=== PATIENT | female | born 1990 | race Caucasian/White ===

== ENCOUNTER 2021-03-13 16:59 | Outpatient (CLI) | payer BC ==
[~2021-03-13] VITALS: Ht 175.3 cm; Wt 107.7 kg
[~2021-03-13 16:59] MED LIST: IBU600 MG PO; PERCOCET 325 MG1 TA2 PO
[2021-03-13] MEDS ORDERED: PRENATAL MULTIV1 KIT PO (17:27)
[2021-03-13 17:41] VITALS: BP 126/80; PULSE 85; TEMP 97.9
--- NOTE | 2021-03-13 17:50 | NUR ---
Discharged to home after reactive strip noted. Instructed to return if ever suspects fetus is not moving a normal amount, with any leaking of fluid, vaginal bleeding, or regular contractions. Instructed to keep next scheduled OBGYN visit. Verbalizes understanding. Denies any questions or concerns.
== END 2021-03-13 17:50 | disposition home or self-care (01) ==
LOC: LDRO 16:59
DX: O36.8130 Decreased fetal movements, third trimester, not applicable or unspecified (principal); Z3A.36 36 weeks gestation of pregnancy

== ENCOUNTER → 2021-03-27 | Outpatient (CLI) | payer BC ==
[~2021-03-27] MED LIST changes: +CYTOTEC200 MCG PO; +PRENATAL MULTIV1 KIT PO
== END ==
LOC: ZCOL.LAB 09:36
DX: Z20.822 Contact with and (suspected) exposure to COVID-19 (principal)

== ENCOUNTER 2021-04-01 06:23 | Inpatient (IN) | payer BC ==
[2021-04-01] VITALS (41 sets, daily range): BP systolic 104–168; BP diastolic 55–86; PULSE 40–117; TEMP 98.1–98.7
[~2021-04-01] VITALS: Ht 175.3 cm; Wt 110.5 kg
[~2021-04-01 06:23] MED LIST changes: -CYTOTEC200 MCG PO
--- NOTE | 2021-04-01 06:30 | NUR ---
Pt arrived on unit ambulatory for scheduled induction of labor. Pt reports occasional contractions, denies any leaking of fluid or vaginal bleeding and reports normal movement. EFM and toco monitors started. Vital signs WNL. Plan of care for induction reviewed.
[2021-04-01 07:28] LABS: BASO % 0.2 % (0.0-2.0); EOS % 0.4 % (0-4.0); GRAN # 5.2 (1.4-6.5); GRAN % 64.9 % (42.2-75.2); LYMPH # 2.2 (1.2-3.4); LYMPH % 27.8 % (20.0-51.0); MEAN CELL VOLUME 94 fl (80.0-100.0); MEAN CORPUSCULAR HEMOGLOBIN 31 pg (27.0-31.0); MEAN CORPUSCULAR HGB CONC 33 g/dl (33.0-37.0); MEAN PLATELET VOLUME 12.1 fl (7.4-10.4); MONO # 0.5 (0.1-0.6); MONO % 6.2 % (1.7-9.3); PLATELET COUNT 228 K/mm3 (130-400); RED BLOOD COUNT 3.85 M/mm3 (4.10-5.30); REDCELL DISTRIBUTION WIDTH-CV 13.2 % (11.5-14.5)
[2021-04-01 07:31] LABS: HEMATOCRIT 36.1 % (37.0-47.0)
--- NOTE | 2021-04-01 09:00 | NUR ---
Roles on the unit. FHR tracing reviewed. Plan of care reviewed with pt and at the bedside.
--- NOTE | 2021-04-01 12:15 | NUR ---
Roles at the bedside. SVE and AROM done with clear fluid /.
--- NOTE | 2021-04-01 13:40 | NUR ---
Difficult tracing ctx. Multiple attempts to adjust toco monitor.
--- NOTE | 2021-04-01 14:29 | NUR ---
1429- ROVERTO Bhagat at the bedside for epidural placement. Pt sitting on the edge of the bed. SPO2 monitor started. 1435- Single shot done per ROVERTO Bhagat. See anesthesia records for details. 1441- Assisted pt back to supine position with left wedge. EFM and toco monitor adjusted.
--- NOTE | 2021-04-01 15:49 | NUR ---
1549- Pt reports feeling a lot of pressure. SVE done by this RN /+1. 1550- Roles notified and enroute to hospital for pending delivery. 1603- Roles at the bedside. Pt set up for delivery. 1606- of viable male . placed on mom's abdomen. Cords clamped and cut. Care of the given to nursery RN at the bedside. 1635- Delivery of placenta with bango assistance. Fundus firm and lochia WNL. Pitocin started at 333ml/hr per order and protocol.
--- NOTE | 2021-04-01 16:45 | NUR ---
Straight cath done following delivery per Dr. Chong
--- NOTE | 2021-04-01 19:45 | NUR ---
1945 EPID DC'D. UP TO BR WITH ASSIST AND VOIDED 100CC. PERICARE DONE AND AMB TO ROOM 215 AND SHAW WELL.
[2021-04-02] VITALS: BP 117/78; PULSE 69; TEMP 98.7
[2021-04-02] MEDS ORDERED: IBU600 MG PO (08:53)
[2021-04-02 09:30] VITALS: BP 120/76; PULSE 92; TEMP 98
--- NOTE | 2021-04-02 10:02 | NUR ---
Initial visit; Patient thanked Process Line Operator for offering congratulations and God's blessings for the of her son. Process Line Operator thanked mom for choosing [facility].
[2021-04-02 12:30] VITALS: BP 119/81; PULSE 81; TEMP 98
[2021-04-02 17:00] VITALS: BP 120/78; PULSE 86; TEMP 98
[2021-04-02 20:02] VITALS: BP 114/83; PULSE 85; TEMP 98.5
[2021-04-03 07:40] VITALS: BP 122/79; PULSE 75; TEMP 97.9
== END 2021-04-03 11:20 | disposition home or self-care (01) | DRG 807 ==
LOC: LDR 06:23 → OB 13:06
PROVIDERS: ADMIT Obstetrics & Gynecology
PROC: 10E0XZZ Delivery of Products of Conception, External Approach (ICD-10-PCS; principal; 2021-04-01)
PROC: 0KQM0ZZ Repair Perineum Muscle, Open Approach (ICD-10-PCS; 2021-04-01)
PROC: 10D17Z9 Manual Extraction of Products of Conception, Retained, Via Natural or Artificial Opening (ICD-10-PCS; 2021-04-01)
DX: O70.1 Second degree perineal laceration during delivery (principal); Z37.0 Single live birth; Z3A.39 39 weeks gestation of pregnancy
CPT/HCPCS: J0690; J2590; J7120

== ENCOUNTER 2021-04-09 01:55 | Inpatient (IN) | payer BC ==
[2021-04-09] VITALS (15 sets, daily range): BP systolic 96–124; BP diastolic 54–81; PULSE 78–105; TEMP 97.6–99.1
[~2021-04-09] VITALS: Ht 175.3 cm; Wt 101.8 kg
[2021-04-09 02:10] LABS: BASO % 0.2 % (0.0-2.0); EOS % 0.2 % (0-4.0); GRAN # 7.1 (1.4-6.5); GRAN % 76.5 % (42.2-75.2); HEMOGLOBIN 10.2 g/dl (12.5-16.0); LYMPH # 1.8 (1.2-3.4); LYMPH % 19.9 % (20.0-51.0); MEAN CELL VOLUME 98 fl (80.0-100.0); MEAN CORPUSCULAR HEMOGLOBIN 31 pg (27.0-31.0); MEAN CORPUSCULAR HGB CONC 32 g/dl (33.0-37.0); MEAN PLATELET VOLUME 10.3 fl (7.4-10.4); MONO # 0.3 (0.1-0.6); PLATELET COUNT 393 K/mm3 (130-400); RED BLOOD COUNT 3.27 M/mm3 (4.10-5.30); REDCELL DISTRIBUTION WIDTH-CV 13.3 % (11.5-14.5)
[2021-04-09 02:14] LABS: HEMATOCRIT 31.9 % (37.0-47.0)
[2021-04-09 02:18] LABS: INR 1.1 (0.8-3.0); PROTHROMBIN TIME 11.7 SECONDS (9.7-12.8)
[2021-04-09 02:20] LABS: PARTIAL THROMBOPLASTIN TIME 26.5 SECONDS (26.0-37.0)
[2021-04-09 02:31] LABS: ALANINE AMINOTRANSFERASE 22 U/L (4-34); ALBUMIN 3.6 gm/dL (3.5-5.0); ALKALINE PHOSPHATASE 137 U/L (50-136); ANION GAP 5 mmol/L (7-16); AST,SGOT 35 U/L (15-37); BILIRUBIN,TOTAL 0.3 mg/dL (0.0-1.0); BLOOD UREA NITROGEN 18 mg/dL (7-17); CALCIUM 8.6 mg/dL (8.4-10.2); CARBON DIOXIDE 23 mmol/L (22-30); CHLORIDE 110 mmol/L (98-107); CREATININE, serum 0.69 (0.52-1.25); GLUCOSE 168 mg/dL (74-106); LIPASE 50 U/L (23-300); POTASSIUM 3.8 mmol/L (3.4-5.0); SODIUM 138 mmol/L (137-145); TOTAL PROTEIN 6.5 gm/dL (6.4-8.2)
[2021-04-09 02:54] LABS: TROPONIN-I < 0.012 ng/mL (0.000-0.035)
[2021-04-09 03:06] LABS: COLLECTION METHOD CATHETER
[2021-04-09 03:15] LABS: MUCOUS Present /lpf; PH 5 (5-8); SQUAMOUS EPITHELIAL 0-2 /hpf; URINE APPEARANCE Hazy; URINE BACTERIA None Seen /hpf; URINE BILIRUBIN Negative (NEGATIVE); URINE BLOOD Negative (NEGATIVE); URINE COLOR Yellow; URINE GLUCOSE Negative (NEGATIVE); URINE KETONE Negative (NEGATIVE); URINE LEUKOCYTE ESTERASE Negative (NEGATIVE); URINE NITRATE Negative (NEGATIVE); URINE PROTEIN(semi-quant) 2+ (NEGATIVE); URINE RBC 0-2 /hpf; URINE UROBILINOGEN Negative (NEGATIVE)
[2021-04-09] MEDS ORDERED: CYTOTEC200 MCG PO ×2 (05:53→05:54)
[2021-04-09 07:24] LABS: BASO % 0.2 % (0.0-2.0); EOS % 0.1 % (0-4.0); GRAN # 9.2 (1.4-6.5); LYMPH # 1.8 (1.2-3.4); LYMPH % 15.8 % (20.0-51.0); MEAN CELL VOLUME 98 fl (80.0-100.0); MEAN CORPUSCULAR HGB CONC 32 g/dl (33.0-37.0); MEAN PLATELET VOLUME 10.5 fl (7.4-10.4); MONO # 0.4 (0.1-0.6); MONO % 3.5 % (1.7-9.3); PLATELET COUNT 352 K/mm3 (130-400); RED BLOOD COUNT 2.66 M/mm3 (4.10-5.30); REDCELL DISTRIBUTION WIDTH-CV 13.5 % (11.5-14.5)
[2021-04-09 07:31] LABS: HEMOGLOBIN 8.3 g/dl (12.5-16.0); MEAN CORPUSCULAR HEMOGLOBIN 31 pg (27.0-31.0)
--- NOTE | 2021-04-09 11:14 | NUR ---
1020 PATIENT HERE FROM ER FOR HEAVY BLEEDING AND NEEDED BLOOD. ASSESSMENT COMPLETED AND IVF STARTED IN LEFT AC. PRBC STARTED BY THIS NURSE. VIOLET MCKEON RN AND RAE DANIELS RN. BP 105/60 P78 T 98.6. BLOOD STARTED AT 60 CC/HR. 1025 PATIET SITTING UP IN BED PUMPING AT THIS TIME. PATIENT STATES IS LIGHTHEADED, SWEATY,AND FEELS BAD. PATIENT PALE, BLOOD PLACED ON HOLD, PUMPING STOPPED AND HEAD OF BED. BP 70/40. COOL WASHRAG TO FOREHEAD. BABY AND AT BEDSIDE. 1035 96/65 PATIENT FEELING BETTER AT THIS TIME. FUNUD FIRM AND NO CLOTS NOTED AT THIS TIME. 1045 BP 111/54 P 90 BLOOD RESTARTED AT 60CC/HR BY THIS NURSE. THIS NURSE REMAINS AT BEDSIDE. BLEEDING REMAINS WNL. 1100 BP 118/62 P92 BLLOD RATE INCREASED TO 300CC/HR. NO SIGNS OR SYMPTOMS OF REACTION AT THIS TIME. PERICARE DONE AT THIS TIME WITH CHUX CHANGED. PATIENT SITS ON BEDPAN FOR 800 CC. PATIENT FEELING MUCH BETTER. 1130 PATIENT REMAINS RESTING AT THIS TIME. DENIES NEEDS AND STATES HAS NOT FELT ACTIVE BLEEDING. DR KELLOGG CALLED AND UPDATED ON ALL ABOVE INFORMATION, NO NEW ORDERS GIVEN.
[2021-04-09 15:05] LABS: HEMATOCRIT 28.5 % (37.0-47.0); HEMOGLOBIN 9.6 g/dl (12.5-16.0)
--- NOTE | 2021-04-09 15:43 | NUR ---
1530 PATIENT DANGLES ON EDGE OF BED WITH ASSIST OF 2. TOLERATES WELL. AMBULATE TO BATHROOM. PERICARE DONE AND VOIDS WITHOUT DIFFICULTY. PLUM SIZE CLOT WITH URINATION. RESTING IN BED NOW. DR KELLOGG CALLED AND UPDATED. NO NEW ORDERS AT THIS TIME
--- NOTE | 2021-04-09 17:36 | NUR ---
1730 SLEPT WELL. SITS UP IN BED TO PUMP AT THIS TIME
[2021-04-10 04:40] VITALS: BP 117/66; PULSE 81; TEMP 98.3
[2021-04-10 07:09] LABS: BASO % 0.1 % (0.0-2.0); EOS # 0.1 (0.0-0.7); EOS % 0.9 % (0-4.0); GRAN % 67.2 % (42.2-75.2); LYMPH # 2.3 (1.2-3.4); LYMPH % 26.3 % (20.0-51.0); MEAN CELL VOLUME 94 fl (80.0-100.0); MEAN CORPUSCULAR HGB CONC 33 g/dl (33.0-37.0); MEAN PLATELET VOLUME 10.3 fl (7.4-10.4); MONO # 0.5 (0.1-0.6); MONO % 5.3 % (1.7-9.3); PLATELET COUNT 269 K/mm3 (130-400); RED BLOOD COUNT 2.79 M/mm3 (4.10-5.30); REDCELL DISTRIBUTION WIDTH-CV 14.3 % (11.5-14.5)
[2021-04-10 07:13] LABS: HEMATOCRIT 26.2 % (37.0-47.0); HEMOGLOBIN 8.6 g/dl (12.5-16.0); MEAN CORPUSCULAR HEMOGLOBIN 31 pg (27.0-31.0)
[2021-04-10 07:30] VITALS: BP 124/77; PULSE 106; TEMP 98.7
[2021-04-10] MEDS ORDERED: IBU600 MG PO (08:15)
[2021-04-10] MEDS ORDERED: PERCOCET 325 MG1 TA2 PO (08:15)
--- NOTE | 2021-04-10 11:12 | NUR ---
Initial visit; Patient thanked [employer] Blind Worker for looking in on her. Cher stated she is doing well and about to check out. [employer]ian Blind Worker wished patient well and offered God's blessings.
== END 2021-04-10 09:00 | disposition home health service (06) | DRG 871 ==
LOC: COL.ER 01:55 → OB 07:37
PROVIDERS: Emergency Medicine; ADMIT Obstetrics & Gynecology
DX: A41.51 Sepsis due to Escherichia coli [E. coli] (principal); I21.A1 Myocardial infarction type 2; N17.9 Acute kidney failure, unspecified; N39.0 Urinary tract infection, site not specified; I10 Essential (primary) hypertension; E11.65 Type 2 diabetes mellitus with hyperglycemia; I27.20 Pulmonary hypertension, unspecified; E87.6 Hypokalemia; I48.0 Paroxysmal atrial fibrillation; R65.20 Severe sepsis without septic shock; M25.571 Pain in right ankle and joints of right foot; R05 Cough
CPT/HCPCS: J2270; J2405; J7030; P9016

== ENCOUNTER 2023-01-25 08:06 | Day surgery (SDC) | payer BC ==
[2023-01-25] VITALS (8 sets, daily range): BP systolic 110–120; BP diastolic 52–616; PULSE 60–80; TEMP 99
[~2023-01-25] VITALS: Ht 175.3 cm; Wt 97.7 kg
[~2023-01-25 08:06] MED LIST changes: +CYTOTEC200 MCG PO
[2023-01-25 08:42] LABS: BASO # 0.1 K/mm3 (0.0-0.2); BASO % 0.5 % (0.0-2.0); EOS % 0.1 % (0.0-4.0); GRAN % 76.9 % (42.2-75.2); HEMATOCRIT 38.7 % (37.0-47.0); HEMOGLOBIN 13.2 g/dl (12.5-16.0); LYMPH # 1.9 K/mm3 (1.2-3.4); LYMPH % 17.9 % (20.0-51.0); MEAN CELL VOLUME 93 fl (80.0-100.0); MEAN CORPUSCULAR HEMOGLOBIN 32 pg (27-31); MEAN CORPUSCULAR HGB CONC 34 g/dl (33.0-37.0); MEAN PLATELET VOLUME 9.7 fl (7.4-10.4); MONO # 0.5 K/mm3 (0.1-0.6); MONO % 4.4 % (1.7-9.3); PLATELET COUNT 383 K/mm3 (130-400); RED BLOOD COUNT 4.15 M/mm3 (4.10-5.30); REDCELL DISTRIBUTION WIDTH-CV 12.8 % (11.5-14.5)
[2023-01-25 09:05] LABS: ALBUMIN 4.5 gm/dL (3.5-5.0); BILIRUBIN,TOTAL 0.5 mg/dL (0.2-1.2); CALCIUM 9.2 mg/dL (8.4-10.2); CREATININE, serum 0.74 mg/dL (0.57-1.11); TOTAL PROTEIN 7.2 gm/dL (6.2-8.1)
--- NOTE | 2023-01-25 16:00 | NUR ---
1335 RETURNS TO ROOM 2 PER CART. AWAKE, ALERT. RESP UNLABORED. HOB ELEVATED 30 DEGREES. VITAL SIGNS OBTAINED. ABD SOFT. BANDAID X 3 SITES CLEAN DRY AND INTACT. V PAD IN PLACE. NO VAGINAL BLEEDING OBSERVED . CALL LIGHT AT SIDE. MOTHER IN ROOM 1350 DOZING 1405 TOLERATES PO WATER WITHOUT NAUSEA 1420 AWAKE, EXPRESSES COMFORT. ABD SOFT 1435 TOLERATES PO SODA AND MUFFIN WITHOUT NAUSEA 1450 CONVERSES WITH MOTHER. ABD SOFT. BANDAIDS DRY/INTACT. V PAD DRY 1520 DOZES, AROUSES EASILY 1535 DISCHARGE INSTRUCTIONS REVIEWED. PATIENT AND MOTHER VERBALIZE UNDERSTANDING. COPY PROVIDED IN DISCHARGE FOLDER 1550 AMBULATES TO BATHROOM WITH STANDBY ASSIST. VOIDS WITHOUT DIFFICULTY. SMALL AMOUNT OF VAGINAL BLEEDING. PAD CHANGED. PATIENT DRESSES, WITH MINIMAL ASSISTANCE FROM MOTHER
== END 2023-01-25 16:00 | disposition home or self-care (01) ==
LOC: COL.ER 08:06 → SDCO 10:27
PROVIDERS: Personal Emergency Response Attendant
DX: O00.90 Unspecified ectopic pregnancy without intrauterine pregnancy (principal); K66.1 Hemoperitoneum; Q51.810 Arcuate uterus; O26.30 Retained intrauterine contraceptive device in pregnancy, unspecified trimester; Z3A.00 Weeks of gestation of pregnancy not specified
CPT/HCPCS: J1100; J1885; J2270; J2405; J2704; J3010; J7030; J7120